=== PATIENT | male | born 1955 | race Caucasian/White ===

== ENCOUNTER 2022-05-13 12:27 | Inpatient (IN) | payer OTHER ==
[~2022-05-13] VITALS: Ht 177.8 cm; Wt 72.6 kg
[~2022-05-13 12:27] MED LIST: IBUP800 PO
[2022-05-13 13:19] LABS: BASOPHILS ABSOLUTE AUTO 0.01 K/mm3 (0.00-0.23); BASOPHILS PERCENT AUTO 0 % (0-2); EOSINOPHILS ABSOLUTE AUTO 0.05 K/mm3 (0.00-0.68); EOSINOPHILS PERCENT AUTO 1 % (0-6); Hematocrit 40.2 % (37.0-53.0); IMMATURE GRAN ABSOLUTE AUTO 0.03 K/mm3 (0.00-0.10); IMMATURE GRAN PERCENT AUTO 0 % (0-1); LYMPHOCYTES ABSOLUTE AUTO 3.17 K/mm3 (0.84-5.20); LYMPHOCYTES PERCENT AUTO 36 % (21-46); MONOCYTES ABSOLUTE AUTO 0.65 K/mm3 (0.16-1.47); MONOCYTES PERCENT AUTO 7 % (4-13); Mean Corpuscular HGB 33.3 pg (26.0-34.0); Mean Corpuscular HGB Conc 34.8 g/dL (31.5-36.5); Mean Corpuscular Volume 96 fL (80-100); Mean Platelet Volume 11.7 fL (9.1-12.4); NEUTROPHILS ABSOLUTE AUTO 4.99 K/mm3 (1.96-9.15); NEUTROPHILS PERCENT AUTO 56 % (41-73); Platelet Count 137 K/mm3 (150-400); RDW Coefficient Variation 12.4 % (11.7-14.2); RDW Standard Deviation 43.8 fL (35.1-46.3); Red Blood Cell Count 4.21 M/mm3 (4.30-5.90)
[2022-05-13 13:35] LABS: Albumin, Blood 3.7 g/dL (3.4-5.0); Albumin/Globulin Ratio 1.2 (0.8-1.8); Bilirubin, Total 0.6 mg/dL (0.1-1.0); Calcium, Blood 8.9 mg/dL (8.5-10.1); Creatinine, Blood 0.57 mg/dL (0.60-1.20); Globulin, Blood 3.2 g/dL (2.2-4.0); Potassium, Blood 3.9 mmol/L (3.5-5.5); Total Protein, Blood 6.9 g/dL (6.4-8.2)
[2022-05-14 05:15] LABS: BASOPHILS ABSOLUTE AUTO 0.03 K/mm3 (0.00-0.23); BASOPHILS PERCENT AUTO 0 % (0-2); EOSINOPHILS ABSOLUTE AUTO 0.12 K/mm3 (0.00-0.68); EOSINOPHILS PERCENT AUTO 1 % (0-6); Hematocrit 36.2 % (37.0-53.0); Hemoglobin 12.7 g/dL (13.5-17.5); IMMATURE GRAN ABSOLUTE AUTO 0.02 K/mm3 (0.00-0.10); IMMATURE GRAN PERCENT AUTO 0 % (0-1); LYMPHOCYTES ABSOLUTE AUTO 3.06 K/mm3 (0.84-5.20); LYMPHOCYTES PERCENT AUTO 36 % (21-46); MONOCYTES ABSOLUTE AUTO 0.81 K/mm3 (0.16-1.47); MONOCYTES PERCENT AUTO 10 % (4-13); Mean Corpuscular HGB 33.2 pg (26.0-34.0); Mean Corpuscular HGB Conc 35.1 g/dL (31.5-36.5); Mean Corpuscular Volume 95 fL (80-100); Mean Platelet Volume 11.3 fL (9.1-12.4); NEUTROPHILS ABSOLUTE AUTO 4.52 K/mm3 (1.96-9.15); NEUTROPHILS PERCENT AUTO 53 % (41-73); Platelet Count 120 K/mm3 (150-400); RDW Coefficient Variation 12.4 % (11.7-14.2); RDW Standard Deviation 43.1 fL (35.1-46.3); Red Blood Cell Count 3.83 M/mm3 (4.30-5.90); White Blood Cell Count 8.56 K/mm3 (4.00-11.30)
[2022-05-14 05:40] LABS: Bun/Creatinine Ratio 26.8 (12.0-20.0); Calcium, Blood 8.8 mg/dL (8.5-10.1); Creatinine, Blood 0.49 mg/dL (0.60-1.20); Potassium, Blood 3.6 mmol/L (3.5-5.5)
--- NOTE | 2022-05-14 05:54 | NUR ---
SUMMARY PT ADMITTED TONIGHT SECONDARY TO L FEMUR FX. CX CALLED TO DR SCOTT ANS SERVICE.
--- NOTE | 2022-05-14 11:42 | NUR ---
Echocardiogram performed.
--- NOTE | 2022-05-14 13:27 | NUR ---
PT TO SDS BY BED WITH ASSIST. AT BEDSIDE. History, Chart, Medications and Allergies reviewed before start of procedure.Lungs clear T/O to Auscultation. Patient confirms NPO status and agrees with scheduled surgery. Pre-Op teaching done. Pt verbalizes understanding.
--- NOTE | 2022-05-14 17:37 | NUR ---
SHIFT SUMMARY PT A&OX4, VSS/RA/TELE NSR @ 69 BPM, NPO, VOIDING/URINAL, PAIN FENT 25 MCGS Q2P, WENT TO O.R. FOR LEFT HIP NAILING. WILL REPORT TO ONCOMING NOC RN.
--- NOTE | 2022-05-15 04:35 | NUR ---
FACE HARDENER SUMMARY PT ARRIVED FROM PACU AT START OF SHIFT AFTER L HIP REPAIR. PT AAOX4 AND PLEASANT POST OP. AQUACEL DRESSING X2 TO L HIP C/D/I. PT'S PAIN HAS BEEN WELL MANAGED WITH IV DILAUDID 1 MG. PT TOLERATING REGULAR DIET WITH NO ISSUES. PT TO HAVE PT/OT EVAL LATER TODAY. VSS, WILL CONTINUE TO MONITOR.
[2022-05-15 10:47] LABS: BASOPHILS ABSOLUTE AUTO 0.01 K/mm3 (0.00-0.23); BASOPHILS PERCENT AUTO 0 % (0-2); EOSINOPHILS ABSOLUTE AUTO 0.04 K/mm3 (0.00-0.68); EOSINOPHILS PERCENT AUTO 0 % (0-6); Hematocrit 37.7 % (37.0-53.0); Hemoglobin 13.1 g/dL (13.5-17.5); IMMATURE GRAN ABSOLUTE AUTO 0.04 K/mm3 (0.00-0.10); IMMATURE GRAN PERCENT AUTO 0 % (0-1); LYMPHOCYTES ABSOLUTE AUTO 1.84 K/mm3 (0.84-5.20); LYMPHOCYTES PERCENT AUTO 16 % (21-46); MONOCYTES ABSOLUTE AUTO 0.56 K/mm3 (0.16-1.47); MONOCYTES PERCENT AUTO 5 % (4-13); Mean Corpuscular HGB 33.4 pg (26.0-34.0); Mean Corpuscular HGB Conc 34.7 g/dL (31.5-36.5); Mean Corpuscular Volume 96 fL (80-100); Mean Platelet Volume 11.3 fL (9.1-12.4); NEUTROPHILS ABSOLUTE AUTO 8.87 K/mm3 (1.96-9.15); NEUTROPHILS PERCENT AUTO 78 % (41-73); Platelet Count 127 K/mm3 (150-400); RDW Coefficient Variation 12.4 % (11.7-14.2); RDW Standard Deviation 43.9 fL (35.1-46.3); Red Blood Cell Count 3.92 M/mm3 (4.30-5.90); White Blood Cell Count 11.36 K/mm3 (4.00-11.30)
[2022-05-15 11:09] LABS: Calcium, Blood 9.1 mg/dL (8.5-10.1); Creatinine, Blood 0.6 mg/dL (0.60-1.20); Potassium, Blood 3.7 mmol/L (3.5-5.5)
[2022-05-15] MEDS ORDERED: Aspir 8181 MG PO (16:12)
[2022-05-15] MEDS ORDERED: Percocet 5-3251 EACH PO (16:13)
--- NOTE | 2022-05-15 16:35 | NUR ---
SHIFT SUMMARY PT A&OX4, VSS/RA, SHARON PO, VOIDING/URINAL IN BED, AMB MIN ASSIST WITH FWW & GB TO BRP AND UP IN ROOM, UP TO CHAIR T/O SHIFT, PAIN MANAGED WITH OXY 5 MG/TYLENOL/TORADOL. POD1 L HIP NAIL, 2 AQUACELS CHANGED TODAY. SCRIPTS SENT HOME WITH : ASA BID X 30 DAYS AND PERC 5/325 MG. WILL REPORT TO ONCOMING NOC RN.
--- NOTE | 2022-05-16 04:53 | NUR ---
POD# 2 L HIP PINNING. PATIENT IS AOX4, WITH X2 AQUACELS TO L HIP. LIGHT SHADOWING TO LOWER AQUACEL. PATIENT AMBULATES 1 ASSIST GB, FWW. USES URINAL AT BEDSIDE. TOLERATING PO INTAKE. MEDICATED FOR PAIN X2 THIS SHIFT. DENIES N/T, N/V. IV SALINE LOCKED. PLAN FOR PT/OT IN AM AND DISCHARGE WITH HOME HEALTH. VSS, CALL LIGHT IN REACH.
[2022-05-16] MEDS ORDERED: TIZA4 PO (09:32)
[2022-05-16] MEDS ORDERED: ACET325 PO (09:32)
--- NOTE | 2022-05-16 10:55 | NUR ---
DISCHARGE POD 2 L HIP PINNING. PATIENT AMBULATING WELL SBA W/ FWW & GB. REPORTS PAIN TO BE MANAGED PER EMAR. X2 AQUACELS IN [place], C/D/I. EATING, DRINKNING, & VOIDING WELL. DISCUSSED DISCHARGE INSRTRUCTIONS WITH PATIENT. SENT WITH PATIENT WELL AQUACEL DRESSINGS TO CHANGE IN 5-7 DAYS, PRIOR TO FOLLOW UP APPOINTMENT. ESCORTED OUT VIA W/C.
[2022-05-16 17:09] LABS: HEPATITIS C QUANTITATION HCV Not Detected IU/mL (.)
== END 2022-05-16 11:07 | disposition home or self-care (01) | DRG 481 ==
LOC: ER 12:27 → SURS 20:09
PROVIDERS: Emergency Medicine; Family Medicine; Orthopaedic Surgery; ADMIT Hospitalist
PROC: 0QS736Z Reposition Left Upper Femur with Intramedullary Internal Fixation Device, Percutaneous Approach (ICD-10-PCS; principal; 2022-05-14 16:00)
DX: S72.145A Nondisplaced intertrochanteric fracture of left femur, initial encounter for closed fracture (principal); F17.213 Nicotine dependence, cigarettes, with withdrawal; I48.92 Unspecified atrial flutter; W01.198A Fall on same level from slipping, tripping and stumbling with subsequent striking against other object, initial encounter; B19.20 Unspecified viral hepatitis C without hepatic coma; M47.816 Spondylosis without myelopathy or radiculopathy, lumbar region; Z51.5 Encounter for palliative care; M51.16 Intervertebral disc disorders with radiculopathy, lumbar region; Z79.899 Other long term (current) drug therapy; Z98.890 Other specified postprocedural states
CPT/HCPCS: 36415; 71045; 72131; 73502; 73700; 80048; 80053; 84443; 85025; 87522; 93005; 93010; 93306; 94760; 96374; 96375; 96376; 97110; 97116; 97162; 97166; 97530; 97535; 99285-25; A9270; C1713; J0690; J1170; J1885; J2060; J2250; J2405; J2704; J3010; J7120

== ENCOUNTER 2024-02-14 09:13 | Observation (INO) | payer OTHER ==
[2024-02-14] VITALS (13 sets, daily range): BP systolic 137–163; BP diastolic 78–101
[~2024-02-14] VITALS: Ht 177.8 cm; Wt 79.4 kg
[~2024-02-14 09:13] MED LIST changes: +ACET325 PO; +Aspir 8181 MG PO; +Percocet 5-3251 EACH PO; +TIZA4 PO
[2024-02-14 10:11] LABS: BASOPHILS ABSOLUTE AUTO 0.04 K/mm3 (0.00-0.23); BASOPHILS PERCENT AUTO 0 % (0-2); EOSINOPHILS ABSOLUTE AUTO 0.25 K/mm3 (0.00-0.68); EOSINOPHILS PERCENT AUTO 3 % (0-6); Hematocrit 42.8 % (37.0-53.0); Hemoglobin 14.6 g/dL (13.5-17.5); IMMATURE GRAN ABSOLUTE AUTO 0.02 K/mm3 (0.00-0.10); IMMATURE GRAN PERCENT AUTO 0 % (0-1); LYMPHOCYTES ABSOLUTE AUTO 2.84 K/mm3 (0.84-5.20); LYMPHOCYTES PERCENT AUTO 32 % (21-46); MONOCYTES ABSOLUTE AUTO 0.58 K/mm3 (0.16-1.47); MONOCYTES PERCENT AUTO 6 % (4-13); Mean Corpuscular HGB 33.2 pg (26.0-34.0); Mean Corpuscular HGB Conc 34.1 g/dL (31.5-36.5); Mean Corpuscular Volume 97 fL (80-100); Mean Platelet Volume 11.3 fL (9.1-12.4); NEUTROPHILS ABSOLUTE AUTO 5.28 K/mm3 (1.96-9.15); NEUTROPHILS PERCENT AUTO 59 % (41-73); Platelet Count 198 K/mm3 (150-400); RDW Standard Deviation 46.5 fL (35.1-46.3); White Blood Cell Count 9.01 K/mm3 (4.00-11.30)
[2024-02-14 10:35] LABS: Albumin, Blood 3.8 g/dL (3.4-5.0); Bilirubin, Total 1.1 mg/dL (0.1-1.0); Bun/Creatinine Ratio 25.1 (12.0-20.0); Calcium, Blood 9.1 mg/dL (8.5-10.1); Creatinine, Blood 0.56 mg/dL (0.60-1.20); Globulin, Blood 3.9 g/dL (2.2-4.0); Total Protein, Blood 7.7 g/dL (6.4-8.2)
[2024-02-14] MEDS ORDERED: NS 500 ML IV SCH (13:55)
[2024-02-14] MEDS ORDERED: Ketorolac Tromethamine 15mg Vial IV ONE (13:55)
[2024-02-14] MEDS ORDERED: Acetaminophen 325 MG TABLET PO PRN (14:55)
[2024-02-14] MEDS ORDERED: Ondansetron HCl 2 MG / ML 2ML Vial IV PRN (14:55)
[2024-02-14] MEDS ORDERED: Lactated Ringer's 1,000 ML IV SCH (14:55)
[2024-02-14] MEDS ORDERED: FentaNYL Citrate 50 MCG/ML 2 ML Injection IV PRN (14:55)
[2024-02-14] MEDS ORDERED: FLU VACC TS2024-25(6MOS UP)/PF 45 MCG/0.5 ML SYRINGE IM SCH (14:55)
[2024-02-14] MEDS ORDERED: Bupivacaine 0.5% HCl 5 MG/ML 30MLVIAL ONE (14:55)
[2024-02-14] MEDS ORDERED: propofoL 20 ML IV ONE (15:14)
[2024-02-14] MEDS ORDERED: FentaNYL Citrate 50 MCG/ML 2 ML Injection ONE (15:14)
[2024-02-14] MEDS ORDERED: Midazolam HCl 1MG / ML 2ML Vial ONE (15:14)
[2024-02-14] MEDS ORDERED: Rocuronium Bromide 10 MG/ML 5ML Injection IV ONE ×2 (15:16→17:13)
--- NOTE | 2024-02-14 15:16 | NUR ---
PT HAS 20G IV TO LEFT WRIST THAT FLUSHES WELL AND FLOWS TO GRAVITY.
[2024-02-14] MEDS ORDERED: Piperacillin/Tazobactam Sod 3.375 GM in NS 100 ML IV ONE (15:25)
--- NOTE | 2024-02-14 15:30 | NUR ---
1500 PT BROUGHT FROM ER TO DAY SURGERY FOR PROCEDURE. VSS. PT ON RA. History, Chart, Medications and Allergies reviewed before start of procedure. Lungs clear T/O to Auscultation. Patient confirms NPO status and agrees with scheduled surgery. Pre-Op teaching done. Pt verbalizes understanding. PT BELONGINGS LEFT WITH SPOUSE FOR SAFEKEEPING.
[2024-02-14] MEDS ORDERED: Ondansetron HCl 2 MG / ML 2ML Vial ONE (15:45)
[2024-02-14] MEDS ORDERED: Dexamethasone Sod Phos 10 MG/ML 1ML VIAL ONE (15:45)
[2024-02-14] MEDS ORDERED: Ketorolac Tromethamine 30mg Vial ONE (15:45)
[2024-02-14] MEDS ORDERED: Indocyanine Green 25 MG Vial IV ONE (16:00)
--- NOTE | 2024-02-14 16:28 | NUR ---
02/14/24 1628 ChristaErin michael 3.375GM WAS GIVEN IV BY AT 1545.
[2024-02-14] MEDS ORDERED: Sugammadex Sodium 200 MG/2ML SDV (100 MG/ML) ONE (17:13)
--- NOTE | 2024-02-14 18:34 | NUR ---
ARRIVAL TO UNIT PT ARRIVED TO UNIT FROM PACU S/P LAP INGUINAL HERNIA REPAIR PT VERY TIRED BUT DENIES PAIN. CURRENTLY ASLEEP IN BED WITH SPOUSE AT BEDSIDE. LAP SITES REMAIN CDI. PT ON ROOM AIR, DENIES SOB. ENCOURAGING DEEP BREATHING. WATER AND JELLO PROVIDED FOR PATIENT IF HE TOLERATES.
[2024-02-14] MEDS ORDERED: Aspirin 81 MG TabEC PO SCH (21:00)
[2024-02-15 00:04] VITALS: BP 147/80
[2024-02-15 03:31] VITALS: BP 123/85
--- NOTE | 2024-02-15 05:00 | NUR ---
SHIFT SUMMARY FRANCISCO JAVIER WAS GROGGY FROM SURGERY AT START OF SHIFT, BUT ABLE TO ANSWER ORIENTATION QUESTIONS ACCURATELY. PT PAIN IS WELL CONTROLLED AT THIS TIME. LAP SITES C/D/I, ADMIT COMPLETED. PT ACCIDENTALLY PULLED IV TO RFA, REPLACED TO LFA. NO ACUTE EVENTS, PT IS PLEASANT AND STABLE. VOIDING APPROPRIATELY, RESTING IN BED AT THIS TIME WATCHING TV
[2024-02-15 05:43] LABS: BASOPHILS ABSOLUTE AUTO 0.02 K/mm3 (0.00-0.23); BASOPHILS PERCENT AUTO 0 % (0-2); EOSINOPHILS ABSOLUTE AUTO 0.03 K/mm3 (0.00-0.68); EOSINOPHILS PERCENT AUTO 0 % (0-6); Hematocrit 38.6 % (37.0-53.0); IMMATURE GRAN ABSOLUTE AUTO 0.04 K/mm3 (0.00-0.10); IMMATURE GRAN PERCENT AUTO 0 % (0-1); LYMPHOCYTES ABSOLUTE AUTO 2.34 K/mm3 (0.84-5.20); LYMPHOCYTES PERCENT AUTO 21 % (21-46); MONOCYTES ABSOLUTE AUTO 0.67 K/mm3 (0.16-1.47); MONOCYTES PERCENT AUTO 6 % (4-13); Mean Corpuscular HGB 33.1 pg (26.0-34.0); Mean Corpuscular HGB Conc 33.7 g/dL (31.5-36.5); Mean Corpuscular Volume 98 fL (80-100); Mean Platelet Volume 12.1 fL (9.1-12.4); NEUTROPHILS ABSOLUTE AUTO 8.22 K/mm3 (1.96-9.15); NEUTROPHILS PERCENT AUTO 73 % (41-73); Platelet Count 181 K/mm3 (150-400); RDW Coefficient Variation 12.8 % (11.7-14.2); RDW Standard Deviation 46.2 fL (35.1-46.3); Red Blood Cell Count 3.93 M/mm3 (4.30-5.90); White Blood Cell Count 11.32 K/mm3 (4.00-11.30)
[2024-02-15 05:58] LABS: Calcium, Blood 9.5 mg/dL (8.5-10.1); Creatinine, Blood 0.61 mg/dL (0.60-1.20); Potassium, Blood 4.3 mmol/L (3.5-5.5)
[2024-02-15 06:56] VITALS: BP 131/76
[2024-02-15] MEDS ORDERED: Nicotine 14 MG PATCH TOP SCH (09:00)
--- NOTE | 2024-02-15 10:06 | NUR ---
ASSUMED CARE OF PT AT 0815. UP ON SIDE OF BED ON ARRIVAL TO ROOM. R ARM IN A SLING. CMS CHECKS WITHIN RANGE. DENIES PAIN AT THIS TIME. OT IN TO WORK WITH PT AND NOW IN A CHAIR WITH CALL BUTTON WITHIN REACH.
--- NOTE | 2024-02-15 10:10 | NUR ---
ASSUMED CARE OF PT AT 0815 WITH REPORT. AT BEDSIDE AT THE TIME ASSISTING HIM WITH DRESSING IN T SHIRT AND UNDERWEAR. PT TOLERATED WELL. REPORTS PAIN IS MUCH BETTER, TO THE POINT OF NOT NEEDING PAIN MEDS AT THIS TIME. DR. VENEGAS IN TO SEE PT WITH PLANS TO DISCHARGE IF OK WITH SURGEON. L GROIN APPEARS IMPROVED PER PT.
--- NOTE | 2024-02-15 10:24 | NUR ---
"Spiritual Care | Pt. request Pt. is awake in bed when he welcomes my visit. Pt. is pleasant. Spouse is at bedside. Facilitate a life reveiw and consider matters of randi and belief. Dr. Mukherjee visited in the middle of our visit. Pt. displayed evidence of awareness and engagement, and continued the life review even as was present. Prayed with Pt. and spouse. Both verbalized gratitude for the spiritual care visit. Pt. verbalizes expectation of being discharged later today."
[2024-02-15] MEDS ORDERED: Aspir 8181 MG PO (10:35)
[2024-02-15] MEDS ORDERED: Nicoderm Cq1 EAC1 TOP (11:28)
[2024-02-15] MEDS ORDERED: Acetaminophen325 M1 PO (11:28)
--- NOTE | 2024-02-15 11:55 | NUR ---
THERAPY DOG VISIT.
--- NOTE | 2024-02-15 12:07 | NUR ---
DISCHARGE INSTRUCTIONS COMPLETED AND DISCUSSED WITH PT EXPRESSING UNDERSTANDING. AT BEDSIDE. TO [facility] VIA W/C.
== END 2024-02-15 12:05 | disposition home or self-care (01) ==
LOC: ER 09:13 → SURS 09:14
PROVIDERS: Physician Assistant; Surgery; ADMIT Family Medicine
PROC: 3E0T3BZ Introduction of Anesthetic Agent into Peripheral Nerves and Plexi, Percutaneous Approach (ICD-10-PCS; 2024-02-14)
PROC: 0YU64JZ Supplement Left Inguinal Region with Synthetic Substitute, Percutaneous Endoscopic Approach (ICD-10-PCS; principal; 2024-02-14 15:00)
DX: K40.30 Unilateral inguinal hernia, with obstruction, without gangrene, not specified as recurrent (principal); K63.89 Other specified diseases of intestine; K66.0 Peritoneal adhesions (postprocedural) (postinfection); I48.92 Unspecified atrial flutter; F17.210 Nicotine dependence, cigarettes, uncomplicated; Z79.82 Long term (current) use of aspirin; Z86.19 Personal history of other infectious and parasitic diseases
CPT/HCPCS: 36415; 74177; 80048; 80053; 83605; 85025; 88304; 96361; 96374-59; 99285-25; A9270; C1781; J1100; J1885; J2250; J2405; J2543; J2704; J3010; J7030; J7120; Q9967